=== PATIENT | male | born 1945 | race Caucasian/White ===

== ENCOUNTER → 2023-09-26 14:37 | Outpatient (REF) | payer MEDICARE, OTHER, SELFPAY | LOC: DHCBC MAIN 14:37 | PROVIDERS: ATTENDING PHYSICIAN Internal Medicine Cardiovascular Disease; FAMILY PHYSICIAN Family Medicine | DX: I34.0 Nonrheumatic mitral (valve) insufficiency (principal); I35.0 Nonrheumatic aortic (valve) stenosis | CPT/HCPCS: 93306 ==

== ENCOUNTER → 2023-10-10 08:45 | Outpatient (REF) | payer MEDICARE, OTHER, SELFPAY | LOC: RAD 08:45 | PROVIDERS: ATTENDING PHYSICIAN Internal Medicine Cardiovascular Disease; FAMILY PHYSICIAN Family Medicine | DX: R09.89 Other specified symptoms and signs involving the circulatory and respiratory systems (principal) | CPT/HCPCS: 93880 ==

== ENCOUNTER → 2024-10-30 07:12 | Outpatient (REF) | payer MEDICARE, OTHER, SELFPAY ==
[2024-10-30 07:40] VITALS: BP 175/70; BP_SYST 60
[2024-10-30 07:48] LABS: Hematocrit 34.5 % (39.0-52.0); Hemoglobin 11.2 g/dL (13.0-18.0); Mean Corp Hgb Conc. 32.5 g/dL (33.0-37.0); Mean Corpuscular Hgb 31.3 pg (27.0-31.0); Mean Corpuscular Volume 96.4 fL (80.0-94.0); Mean Platelet Volume 12.5 fL (7.4-10.4); Platelet Count 74 10^3/uL (130-400); Red Blood Cell Count 3.58 10^6/uL (4.70-6.10); Red Cell Dist. Width 15.9 % (11.5-14.5); White Blood Cell Count 37.1 10^3/uL (4.8-10.8)
[2024-10-30 07:57] LABS: INR 1.04; PT 14.1 Sec (11.4-14.6)
[2024-10-30 08:27] LABS: Absolute Neutrophils -Man Diff 32.2 10^3/uL (1.4-6.5); Band Neutrophils 3 % (0-3); Eosinophils 1 % (0-6); Lymphocytes 4 % (20-51); Metamyelocytes 1 % (-); Monocytes 4 % (2-9); Myelocytes 3 % (-); Platelets Checked Yes; Segmented Neutrophils 84 % (42-75)
[2024-10-30 08:28] LABS: Anisocytosis Slight; Normal RBC Morphology No; Ovalocytes Slight; Tear Drop Red Blood Cells Slight; Total Cells Counted 100
[2024-10-30 09:12] VITALS: BP 155/72; BP_SYST 69
[2024-10-30 09:23] VITALS: BP 157/66
== END ==
LOC: RADI 07:12
PROVIDERS: ATTENDING PHYSICIAN Internal Medicine Hematology & Oncology; FAMILY PHYSICIAN Physician Assistant
DX: D69.3 Immune thrombocytopenic purpura (principal); D68.8 Other specified coagulation defects
CPT/HCPCS: 88305; 88311; 88312; 36415; 38222; 77012; 85025; 85610; 88313

== ENCOUNTER → 2025-01-02 10:14 | Outpatient (REF) | payer MEDICARE, OTHER, SELFPAY ==
[2025-01-02 11:40] LABS: ALT (SGPT) 20 U/L (0-50); AST (SGOT) 23 U/L (17-59); Albumin 4.2 g/dl (3.5-5.0); Alkaline Phosphatase 47 U/L (38-126); Blood Urea Nitrogen 31 mg/dl (9-20); Calcium 9.4 mg/dl (8.4-10.2); Carbon Dioxide 27 mmol/L (22-30); Chloride 109 mmol/L (98-107); Glucose 82 mg/dl (70-99); HDL Cholesterol 62 mg/dl; LDL Cholesterol, Calculated 62 mg/dl; Potassium 4.3 mmol/L (3.5-5.1); Sodium 141 mmol/L (135-145); Total Bilirubin 1.1 mg/dl (0.2-1.3); Total Cholesterol 150 mg/dl (50-199); Triglyceride 131 mg/dl (10-149); Very Low Density Lipoprotein 26 mg/dl (0-30); eGFR > 60.00
== END ==
LOC: REG 10:14
PROVIDERS: ATTENDING PHYSICIAN Internal Medicine Cardiovascular Disease; FAMILY PHYSICIAN Family Medicine
DX: E78.00 Pure hypercholesterolemia, unspecified (principal)
CPT/HCPCS: 36415; 80053; 80061

== ENCOUNTER → 2025-02-10 13:45 | Outpatient (REF) | payer MEDICARE, OTHER, SELFPAY | LOC: RCS 13:45 | PROVIDERS: ATTENDING PHYSICIAN Internal Medicine Cardiovascular Disease; FAMILY PHYSICIAN Family Medicine; REFERRING PHYSICIAN Internal Medicine Hematology & Oncology | DX: I44.30 Unspecified atrioventricular block (principal) | CPT/HCPCS: 93306 ==

== ENCOUNTER 2025-02-24 10:20 | Outpatient (RCR) | payer MEDICARE, OTHER, SELFPAY ==
[2025-02-24 10:47] VITALS: BP 157/59
[2025-02-24] MEDS: TYLENOL 650 MG PO (10:52)
[2025-02-24 11:04] VITALS: BP 140/52
[2025-02-24 13:00] VITALS: BP 145/58
== END 2025-03-15 23:59 | disposition home or self-care (01) ==
LOC: OID 10:20
PROVIDERS: ATTENDING PHYSICIAN Internal Medicine Hematology & Oncology; FAMILY PHYSICIAN Family Medicine
DX: D69.3 Immune thrombocytopenic purpura (principal); D69.6 Thrombocytopenia, unspecified (principal); R06.9 Unspecified abnormalities of breathing; R60.9 Edema, unspecified; R79.89 Other specified abnormal findings of blood chemistry; D75.81 Myelofibrosis
CPT/HCPCS: 36415; 36430; 86850; 86900; 86901; 86920; P9016

== ENCOUNTER → 2025-03-24 15:50 | Outpatient (REF) | payer MEDICARE, OTHER, SELFPAY ==
[2025-03-24 15:17] LABS: Hematocrit 26.3 % (39.0-52.0); Hemoglobin 8.6 g/dL (13.0-18.0); Mean Corp Hgb Conc. 32.7 g/dL (33.0-37.0); Mean Corpuscular Volume 100.0 fL (80.0-94.0); Platelet Count 30 10^3/uL (130-400); Red Cell Dist. Width 17.3 % (11.5-14.5)
[2025-03-24 16:13] LABS: Absolute Neutrophils -Man Diff 19.4 10^3/uL (1.4-6.5); Normal RBC Morphology No; Platelets Checked Yes; Total Cells Counted 100
== END ==
LOC: OIDL 15:50
PROVIDERS: ATTENDING PHYSICIAN Nurse Practitioner Adult Health
DX: D69.6 Thrombocytopenia, unspecified (principal); R60.9 Edema, unspecified; D69.3 Immune thrombocytopenic purpura; M85.88 Other specified disorders of bone density and structure, other site; R79.89 Other specified abnormal findings of blood chemistry; D75.81 Myelofibrosis
CPT/HCPCS: 85025

== ENCOUNTER → 2025-05-07 10:31 | Outpatient (REF) | payer MEDICARE, OTHER, SELFPAY | LOC: MRI 10:31 | PROVIDERS: ATTENDING PHYSICIAN Internal Medicine Hematology & Oncology; FAMILY PHYSICIAN Family Medicine | DX: D69.6 Thrombocytopenia, unspecified (principal); R60.9 Edema, unspecified; D69.3 Immune thrombocytopenic purpura; M85.88 Other specified disorders of bone density and structure, other site; R79.89 Other specified abnormal findings of blood chemistry; D75.81 Myelofibrosis | CPT/HCPCS: 72197; 76014; 76015; A9575 ==